=== PATIENT | male | born 1985 ===

== ENCOUNTER → 2025-02-27 09:51 | Outpatient (CLI) | payer OTHER, SELFPAY ==
[2025-02-27 19:36] LABS: Add Manual Diff / Slide Review NO; Hematocrit 41.9 % (41-53); Hemoglobin 14.0 g/dL (13.5-17.5); Lymphocytes Absolute Auto 1900 /uL (1100-4500); Mean Corpuscular HGB Conc 33.5 % (30-36); Mean Corpuscular Hemoglobin 29.9 PG (26-34); Mean Corpuscular Volume 89.2 fL (80-100); Platelet Count 275 X10^3/uL (150-400)
[2025-02-27 19:49] LABS: Alanine Aminotransferase 38 IU/L (<50); Albumin 4.6 g/dL (3.5-5.0); Albumin Globulin Ratio 1.4 (1.0-2.8); Alkaline Phosphatase 79 U/L (38-126); Blood Urea Nitrogen 17 mg/dL (9-20); Calcium 9.8 mg/dL (8.4-10.2); Carbon Dioxide 26 mmol/L (22-32); Chloride 103 mmol/L (98-107); Cholesterol 260 mg/dL (140-199); Estimated Glomerular Filt Rate > 60 mL/min (>60); Globulin 3.2 g/dL (1.7-4.1); Glucose 94 mg/dL (70-99); HDL Cholesterol 87 mg/dL (40-60); HEMOLYSIS < 15 (0-50); Potassium 4.4 mmol/L (3.4-5.1); Sodium 139 mmol/L (137-145); Total Protein 7.8 g/dL (6.3-8.2); Triglycerides 113 mg/dL (35-150)
[2025-02-27 20:07] LABS: Hemoglobin A1C% w Est Avg Glu 5.5 % (4.0-6.0)
[2025-02-27 20:10] LABS: TSH w/ Reflex to FT4 2.61 uIU/mL (0.47-4.68)
== END ==
PROVIDERS: PCP Family Medicine; Visit Provider Physician Assistant Medical
DX: F17.200 Nicotine dependence, unspecified, uncomplicated (principal); I10 Essential (primary) hypertension; E66.9 Obesity, unspecified
CPT/HCPCS: 80053; 80061; 83036; 84443; 85025